=== PATIENT | female | born 1990 | race Caucasian/White ===

== ENCOUNTER 2016-10-03 13:09 | Emergency (ER) | payer OTHER ==
[2016-10-03] MEDS ORDERED: ONDANSETRON 4 MG TAB.RAPDIS SL ONE (13:26)
[2016-10-03] MEDS ORDERED: HYDROCODONE/ACETAMINOPHEN 5-325 MG TABLET PO ONE (13:26)
--- NOTE | 2016-10-03 13:27 | ER Document Report ---
ED Medical Screen (RME) - General Chief Complaint: Abdominal Pain Stated Complaint: RIGHT SIDE FLANK PAIN Time Seen by Provider: 10/03/16 13:20 Mode of Arrival: Ambulatory Information source: Patient TRAVEL OUTSIDE OF THE [place] IN LAST 30 DAYS: No - HPI Patient complains to provider of: Right-sided abdominal pain Onset: Other - 3 days Onset/Duration: Worse Notes: 10/03/16 13:27 Patient is a 26-year-old female presenting to the emergency room complaining of 3 day history of worsening abdominal pain, denies any vomiting, no fevers, no urinary symptoms, no vaginal discharge or irregular bleeding, no aggravating or alleviating symptoms - Related Data Allergies/Adverse Reactions: No Known Allergies Allergy (Verified 10/03/16 13:15) Past Medical History Renal/ Medical History: Denies: Hx Peritoneal Dialysis Physical Exam - Vital signs Vitals: Temp Pulse Resp BP Pulse Ox 98.8 F 105 H 16 123/67 99 10/03/16 13:13 10/03/16 13:13 10/03/16 13:13 10/03/16 13:13 10/03/16 13:13 Course - Vital Signs Vital signs: Temp Pulse Resp BP Pulse Ox 98.8 F 105 H 16 123/67 99 10/03/16 13:13 10/03/16 13:13 10/03/16 13:13 10/03/16 13:13 10/03/16 13:13
[2016-10-03 13:58] LABS: ABSOLUTE EOSINOPHILS # (AUTO) 0.1 10^3/uL (0.0-0.6); ABSOLUTE LYMPHOCYTES (AUTO) 3.9 10^3/uL (0.5-4.7); ABSOLUTE MONOCYTES (AUTO) 0.5 10^3/uL (0.1-1.4); ABSOLUTE NEUT (AUTO) 4.3 10^3/uL (1.7-8.2); BASOPHILS % (AUTO) 0.5 % (0-2); EOSINOPHILS % (AUTO) 1.3 % (0-6); HEMOGLOBIN 14.6 g/dL (12.0-15.5); HGB HCT DIFFERENCE 0.8; LYMPHOCYTES % (AUTO) 43.7 % (13-45); MEAN CORPUSCULAR HEMOGLOBIN 29.7 pg (27.0-33.4); MEAN CORPUSCULAR HGB CONC 33.9 g/dL (32.0-36.0); MEAN CORPUSCULAR VOLUME 88 fl (80-97); MONOCYTES % (AUTO) 6.1 % (3-13); RED CELL DISTRIBUTION WIDTH 13.9 % (11.5-14.0); SEGMENTED NEUTROPHILS % (AUTO) 48.4 % (42-78); WHITE BLOOD COUNT 8.9 10^3/uL (4.0-10.5)
[2016-10-03 14:07] LABS: APPEARANCE,URINE SLIGHTLY-CLOUDY; BILIRUBIN,URINE NEGATIVE (NEGATIVE); GLUCOSE, URINE NEGATIVE (NEGATIVE); KETONES,URINE NEGATIVE (NEGATIVE); LEUKOCYTE ESTERASE,URINE SMALL (NEGATIVE); NITRITE,URINE NEGATIVE (NEGATIVE); PROTEIN,URINE NEGATIVE (NEGATIVE); URINE SPECIFIC GRAVITY 1.029; UROBILINOGEN,URINE NEGATIVE mg/dL (<2.0)
[2016-10-03 14:11] LABS: ALANINE AMINOTRANSFERASE 34 U/L (9-52); ALBUMIN 4.9 g/dL (3.5-5.0); ALKALINE PHOSPHATASE 66 U/L (38-126); ANION GAP 12 (5-19); ASPARTATE AMINO TRANSFERASE 26 U/L (14-36); BILIRUBIN,DIRECT 0.3 mg/dL (0.0-0.4); BILIRUBIN,TOTAL 0.5 mg/dL (0.2-1.3); BLOOD UREA NITROGEN 15 mg/dL (7-20); CALCIUM 9.7 mg/dL (8.4-10.2); CARBON DIOXIDE 27 mmol/L (22-30); CHLORIDE 102 mmol/L (98-107); CREATININE RESULT 0.95 mg/dL (0.52-1.25); GLUCOSE 58 mg/dL (75-110); LIPASE 125.5 U/L (23-300); POTASSIUM 4.1 mmol/L (3.6-5.0); SODIUM 140.9 mmol/L (137-145); TOTAL PROTEIN 8.7 g/dL (6.3-8.2)
[2016-10-03] MEDS ORDERED: IBUPROFEN 600 MG TABLET PO ONE (14:37)
--- NOTE | 2016-10-03 14:45 | ER Document Report ---
ED GI/ - General Chief Complaint: Abdominal Pain Stated Complaint: RIGHT SIDE FLANK PAIN Time Seen by Provider: 10/03/16 13:20 Mode of Arrival: Ambulatory Notes: The patient is a 26-year-old female who presents with 3 days of intermittent right upper quadrant and right upper and lower quadrant abdominal pain, nausea and diarrhea. She has a history of ovarian cysts, but says that this feels different. She said the pain is worse when she eats. She denies vomiting, fevers, dysuria, hematuria, vaginal discharge, hematochezia or recent travel. TRAVEL OUTSIDE OF THE [place] IN LAST 30 DAYS: No - Related Data Allergies/Adverse Reactions: No Known Allergies Allergy (Verified 10/03/16 17:54) Home Medications: Current Home Medications No Home Medications 10/03/16 [History] Past Medical History - General Information source: Patient - Social History Smoking Status: Current Some Day Smoker Frequency of alcohol use: None Drug Abuse: None Family History: Reviewed & Not Pertinent Renal/ Medical History: Denies: Hx Peritoneal Dialysis Past Surgical History: Reports: Hx Oral Surgery - wisdom teeth Review of Systems - Review of Systems Notes: REVIEW OF SYSTEMS: CONSTITUTIONAL: -fevers, -chills EENT: -eye pain, -difficulty swallowing, -nasal congestion CARDIOVASCULAR:-chest pain, -syncope. RESPIRATORY: -cough, -SOB GASTROINTESTINAL: +RUQ and RLQ abdominal pain, -nausea, -vomiting, +diarrhea GENITOURINARY: -dysuria, -hematuria MUSCULOSKELETAL: -back pain, -neck pain SKIN: -rash or skin lesions. HEMATOLOGIC: -easy bruising or bleeding. LYMPHATIC: -swollen, enlarged glands. NEUROLOGICAL: -altered mental status or loss of consciousness, -headache, - neurologic symptoms PSYCHIATRIC: -anxiety, -depression. ALL OTHER SYSTEMS REVIEWED AND NEGATIVE. Physical Exam - Vital signs Vitals: Temp Pulse Resp BP Pulse Ox 98.8 F 105 H 16 123/67 99 10/03/16 13:13 10/03/16 13:13 10/03/16 13:13 10/03/16 13:13 10/03/16 13:13 - Notes Notes: PHYSICAL EXAMINATION: GENERAL: Well-appearing, well-nourished and in no acute distress. HEAD: Atraumatic, normocephalic. EYES: Pupils equal round and reactive to light, extraocular movements intact, sclera anicteric, conjunctiva are normal. ENT: nares patent, oropharynx clear without exudates. Moist mucous membranes. NECK: Normal range of motion, supple without lymphadenopathy LUNGS: Breath sounds clear to auscultation bilaterally and equal. No wheezes rales or rhonchi. HEART: Regular rate and rhythm without murmurs ABDOMEN: Soft, mild RUQ and RLQ tenderness, normoactive bowel sounds. No guarding, no rebound. No masses appreciated. EXTREMITIES: Normal range of motion, no pitting or edema. No cyanosis. NEUROLOGICAL: Cranial nerves grossly intact. Normal speech, normal gait. Normal sensory and motor exams. PSYCH: Normal mood, normal affect. SKIN: Warm, Dry, normal turgor, no rashes or lesions noted. Course - Re-evaluation Re-evalutation: Spoke to Dr. Marshall (Radiologist) and she said that the patient's CBD is dilated, but the gallbladder is contracted and no stones are seen. She is recommending an MRCP due to concern about choledocholithiasis. Appendix was not visualized due to the mild right lower quadrant tenderness. Spoke to Dr. Gonzalez (surgeon tombstone erector helper) and he recommends MRCP. 10/03/16 20:09 Dr. Gonzalez saw patient and reviewed MRCP. No evidence of GB disease. Labs are unremarkable. Pt was appropriately treated for Chlamydia last week at [facility] and is not having any vaginal discharge. Pt is no longer having any RLQ tenderness and feels better. Gave patient strict return precautions, especially about appendicitis, and she understands. Will D/C home with f/u at PMD/GI. - Vital Signs Vital signs: Temp Pulse Resp BP Pulse Ox 98.5 F 71 14 109/44 L 98 10/03/16 18:13 10/03/16 18:13 10/03/16 18:13 10/03/16 18:13 10/03/16 18:13 - Laboratory Result Diagrams: 10/03/16 13:42 10/03/16 13:42 Laboratory results interpreted by me: 10/03/16 10/03/16 13:42 13:42 Glucose 58 L Total Protein 8.7 H Ur Leukocyte Esterase SMALL H - Diagnostic Test Radiology reviewed: Image reviewed, Reports reviewed Radiology results interpreted by me: RUQ US: dilated CBD Discharge - Discharge Clinical Impression: Abdominal pain Qualifiers: Abdominal location: unspecified location Qualified Code(s): R10.9 - Unspecified abdominal pain Condition: Stable Disposition: HOME, SELF-CARE Additional Instructions: ABDOMINAL PAIN: There are many causes of abdominal pain. Pain can mean a serious problem requiring surgery (such as appendicitis). It can also be an innocent problem that goes away on its own (such as a viral infection). Often, time must pass to determine the cause of pain. The physician does not feel that hospitalization is necessary, at present. Things may change within the next 24 hours. Call the doctor or come back for re- examination if any problems occur, such as: (1) Pain that becomes more severe, steady, or becomes concentrated in one specific area. Also, pain that is more severe with movement or coughing. (2) Vomiting that persists or becomes more frequent. (3) Blood in the vomitus, urine, or bowel movements. Blood in the stool may have a tarry or black appearance. (4) Shaking chills or fever greater than 100 degrees F. (5) The abdomen becomes more distended or swollen. (6) Bowel movements cease. (7) Failure to improve as expected. NORMAL EXAM AND WORKUP: At this time, your examination and workup show no significant abnormality. No significant abnormal physical findings are noted. All laboratory, EKG, and imaging (x-ray, CT scans, ultrasound) studies that were ordered show no significant abnormality. Although your examination and all studies that were ordered showed no significant abnormal finding, there are no examinations and no studies that are 100% accurate. There is always the possibility that some abnormality could exist and not be detected with physical examination or within the limits and capabilities of laboratory and other studies. You should return or follow up as you were instructed on your visit today for further evaluation if your symptoms do not resolve. FOLLOW-UP CARE: If you have been referred to a physician for follow-up care, call the physician s office for an appointment as you were instructed or within the next two days. If you experience worsening or a significant change in your symptoms, notify the physician immediately or return to the Emergency Department at any time for re-evaluation. Referrals: THU GUTIERRES MD [ACTIVE STAFF] - Follow up as needed
[2016-10-03] MEDS ORDERED: HYDROMORPHONE HCL INJ/PF 2 MG/ML AMPULE IV ONE (17:18)
[2016-10-03] MEDS ORDERED: DEXTROSE 5%-1/2 NORMAL SALINE 1,000 ML IV ONE (17:18)
[2016-10-03 20:45] VITALS: BP 105/49
--- NOTE | 2016-10-03 22:42 | HISTORY AND PHYSICAL E ---
History and Physical NAME: ILIANA GRIMES : 1990 AGE: 26Y ADMITTED: 10/03/2016 ROOM: CHIEF COMPLAINT: Abdominal pains. HISTORY OF PRESENT ILLNESS: This is a 26-year-old female who presented with 3 days of intermittent right upper quadrant and right lower quadrant pains with nausea and diarrhea. About 3 weeks ago she was diagnosed with chlamydia infection and took 1 dose of azithromycin. She says the pain is worse when she eats and pains are worse today. She denies any vomiting, fever, dysuria, hematuria, vaginal discharge or hematochezia. ALLERGIES: None known. PAST MEDICAL HISTORY: Unremarkable. SOCIAL HISTORY: Smokes half a pack a day. Denies alcohol or drug use. REVIEW OF SYSTEMS: Constitutional: Denies fever or chills. ENT: No difficulty swallowing or eye or hearing problems. Cardiovascular: Denies chest pain. Respiratory: Denies cough or shortness of breath. GI: Positive right upper quadrant and right lower quadrant pains with nausea but no vomiting and positive diarrhea. Genitourinary: No dysuria, no hematuria. Musculoskeletal: No back pain or leg pains. Skin: No rash or skin lesions. Hematologic: No easy bruisability or bleeding. Lymphatic: No swollen or enlarged glands. Neurological: No altered mental status or seizures. Psychiatry: Denies anxiety or depression. All other systems were reviewed and are unremarkable. PHYSICAL EXAMINATION: VITAL SIGNS: Temperature 98.8, pulse 105 per minute, respirations 16 per minute, blood pressure 123/67, pulse oximetry of 99% on room air. GENERAL: Well-being, well-nourished in no acute distress. HEENT: Head is atraumatic, normocephalic. Eyes: Pupils are equal and reactive to light. Anicteric sclerae. Nares patent, moist mucous membranes. NECK: Normal range of motion, supple without adenopathy. LUNGS: Clear breath sounds bilaterally. HEART: Heart rate of 105 per minute, no murmurs. Regular rate and rhythm. ABDOMEN: Soft with mild right upper quadrant tenderness with minimal right lower quadrant tenderness. No guarding, no rebound and no masses palpated. EXTREMITIES: Normal range of motion. No edema. NEUROLOGIC: Cranial nerves are intact. Normal sensory and motor exams. PSYCHIATRIC: Normal mood and normal affect. SKIN: Warm and dry. LABORATORY DATA: She had an ultrasound of the gallbladder which showed contracted gallbladder, no definite stones but dilated common bile duct. Liver function tests are normal. She will have an MRCP. IMPRESSION: 1. Abdominal pains due to questionable common bile duct obstruction. 2. 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 PLAN: 1. Will get MRCP. 2. Will ask FILM DRYING MACHINE OPERATOR for consultation. 3. Repeat blood work in the a.m. and keep n.p.o. tonight. 4. Will reevaluate in a.m. DICTATING PHYSICIAN: COREY RUIZ M.D. [id number] PHY#: [id number] ID: [id number] JOB#: [id number] ACCT: [id number] cc:[facility], LEIA Loredo
--- NOTE | 2016-10-05 15:44 | RADIOLOGY REPORT (SQ) ---
EXAM DESCRIPTION: U/S ABDOMEN LIMITED W/O DOP COMPLETED DATE/TIME: 10/03/2016 4:39 pm REASON FOR STUDY: Upper abdominal pain COMPARISON: No previous TECHNIQUE: Right upper quadrant ultrasound was performed including grayscale and color flow images s aved to pac's. Limited ultrasound over the right lower quadrant was also performed. LIMITATIONS: Midline upper abdominal bowel gas FINDINGS: Ultrasound over the right lower quadrant was nondiagnostic. We were unable to visualize t he appendix. The right ovary is normal size with normal color flow. Liver is normal size, with antegrade portal venous flow. No masses. No biliary ductal dilatation. Gallbladder is contracted. No stones. The common bile duct at the marisel hepatis is prominent for the patient's age, 7 mm in diameter. Dist al most common duct not well seen. A distal ductal stone or stricture could not be excluded. This r eport was discussed with Dr. Machado. Abdominal aorta, vena cava unremarkable. Right kidney 11 cm in length without cysts, stones, or masses. IMPRESSION: Contracted gallbladder without gross evidence of gallstones. Common bile duct prominent for patient age. Distal ductal stone or stricture could not be excluded.
--- NOTE | 2016-10-05 16:53 | RADIOLOGY REPORT (SQ) ---
EXAM DESCRIPTION: MRI ABDOMEN WITHOUT COMPLETED DATE/TIME: 10/03/2016 7:00 pm REASON FOR STUDY: MRCP, possible choledocolithiasis COMPARISON: Ultrasound from earlier. TECHNIQUE: Noncontrast MRCP. Source and MIP images reviewed. LIMITATIONS: None. FINDINGS: GALLBLADDER: Normal. INTRAHEPATIC DUCTS: Nondilated. EXTRAHEPATIC DUCTS: Common duct is normal caliber. No dilatation of the pancreatic duct. No ductal filling defects noted. PANCREAS: Generally homogeneous, no gross mass or significant signal alteration. No surrounding infl ammatory changes or fluid. Pancreatic duct is normal. LIVER, SPLEEN, KIDNEYS, ADRENALS: No significant abnormality. VESSELS: No evidence of aneurysm. Grossly appropriate flow voids in the major vascular structures. LUNG BASES: Grossly clear. OTHER: No other significant finding. IMPRESSION: NORMAL HEPATOBILIARY SYSTEM. NO STONES OR COMMON DUCT ABNORMALITIES. TECHNICAL DOCUMENTATION: JOB ID: [id number] [employer]- All Rights Reserved
== END 2016-10-03 20:53 | disposition home or self-care (01) ==
LOC: ER 13:09
DX: K82.8 Other specified diseases of gallbladder (principal); R10.11 Right upper quadrant pain; R10.31 Right lower quadrant pain; R11.0 Nausea; R19.7 Diarrhea, unspecified; F17.200 Nicotine dependence, unspecified, uncomplicated; Z87.42 Personal history of other diseases of the female genital tract; Z86.19 Personal history of other infectious and parasitic diseases
CPT/HCPCS: 99284; 96375; 96365; 36415; 82962; 83690; 85025; 81025; 80053; 81001; 74181; 76705; S0119; J1170